=== PATIENT | female | born 2000 | race Caucasian/White ===

== ENCOUNTER 2021-08-31 22:01 | Emergency (ER) | payer OTHER ==
[~2021-08-31] VITALS: Ht 160 cm; Wt 68.0 kg
[~2021-08-31 22:01] MED LIST: CLARITIN10 MG PO; KENALOG0.1% TP
[2021-08-31 23:07] LABS: BILIRUBIN Negative (Negative); BLOOD Negative (Negative); CLARITY Cloudy (Clear); COLOR Yellow (Yellow); GLUCOSE Negative (Negative); KETONE Trace (Negative); LEUKO ESTERASE 1+ (Negative); NITRITE Negative (Negative); PH 5.5 (4.5-8.0); SPECIFIC GRAVITY >= 1.030 (1.001-1.030)
[2021-08-31 23:16] LABS: EPITHELIAL CELLS 41-50
[2021-08-31 23:17] LABS: BACTERIA 1+; CALCIUM OXALATE CRYSTALS Trace; URINE AMPHETAMINES > 1000 (1000ng/ml); URINE BARBITURATES < 200 (200ng/ml); URINE BENZODIAZEPINES < 200 (200ng/ml); URINE CANNABINOIDS (THC) > 50 (50ng/ml); URINE COCAINE < 300 (300ng/ml); URINE METHADONE < 300 (300ng/ml); URINE OPIATES < 300 (300ng/ml)
[2021-08-31 23:18] LABS: URINE PHENCYCLIDINE < 25 (25ng/ml)
== END 2021-08-31 23:05 | disposition home or self-care (01) ==
LOC: ED 22:01
PROVIDERS: Emergency Medicine
DX: O9A.211 Injury, poisoning and certain other consequences of external causes complicating pregnancy, first trimester (principal); S96.811A Strain of other specified muscles and tendons at ankle and foot level, right foot, initial encounter; O99.341 Other mental disorders complicating pregnancy, first trimester; F32.A Depression, unspecified; Z3A.01 Less than 8 weeks gestation of pregnancy

== ENCOUNTER 2021-10-18 20:02 | Emergency (ER) | payer OTHER ==
[2021-10-18] MEDS ORDERED: CEPHALEXIN500 M1 PO (20:43)
[2021-10-18] MEDS ORDERED: SEPTDS PO (20:43)
== END 2021-10-18 21:09 | disposition home or self-care (01) ==
LOC: ED 20:02
DX: S90.562A Insect bite (nonvenomous), left ankle, initial encounter (principal); S70.361A Insect bite (nonvenomous), right thigh, initial encounter; Z91.040 Latex allergy status; F17.200 Nicotine dependence, unspecified, uncomplicated; W57.XXXA Bitten or stung by nonvenomous insect and other nonvenomous arthropods, initial encounter; Y93.89 Activity, other specified; Y92.89 Other specified places as the place of occurrence of the external cause; Y99.8 Other external cause status

== ENCOUNTER 2023-02-21 18:37 | Emergency (ER) | payer OTHER ==
[~2023-02-21] VITALS: Ht 162.5 cm; Wt 77.1 kg
[~2023-02-21 18:37] MED LIST changes: +CEPHALEXIN500 M1 PO; +SEPTDS PO
[2023-02-21 19:30] LABS: BASO % 0.1 % (0.0-1.0); EOS # 0.2 10*3/uL (0.0-0.4); EOS % 1.8 % (1.0-4.0); HEMATOCRIT 37.4 % (37.0-47.0); LYMPH # 1.2 10*3/uL (1.3-4.4); LYMPH % 13.1 % (27.0-41.0); MEAN CORPUSCULAR HGB 29.4 pg (27.0-31.0); MEAN CORPUSCULAR HGB CONC 32.4 g/dl (33.0-37.0); MEAN PLATELET VOLUME 8.7 fl (9.6-12.3); MONO # 0.4 10*3/uL (0.1-1.0); MONO % 4.4 % (3.0-9.0); NEUT # 7.2 10*3/uL (2.3-7.9); NEUT % 80.3 % (47.0-73.0); PLATELET COUNT AUTOMATED 181 10*3/uL (130-400); RED BLOOD COUNT 4.11 10*6/uL (4.10-5.10); RED CELL DISTRI WIDTH 13.1 % (0-14.5); WHITE BLOOD COUNT 8.9 10*3/uL (4.8-10.8)
[2023-02-21 19:51] LABS: ALKALINE PHOSPHATASE 62 U/L (46-116); BUN 13 mg/dl (9-23); CHLORIDE 109 mmol/L (98-107); POTASSIUM 3.6 mmol/L (3.4-5.1); TOTAL PROTEIN 6.5 gm/dL (6.0-8.0)
[2023-02-21 20:00] LABS: SGPT/ALT < 7 U/L (5-49)
[2023-02-21] MEDS ORDERED: AMOXICILLIN500 M3 PO (20:57)
== END 2023-02-21 21:26 | disposition home or self-care (01) ==
LOC: ED 18:37
PROVIDERS: Nurse Practitioner Family
DX: R59.0 Localized enlarged lymph nodes (principal); H92.02 Otalgia, left ear

== ENCOUNTER 2024-09-25 13:37 | Emergency (ER) | payer OTHER ==
[~2024-09-25] VITALS: Ht 162.5 cm; Wt 74.8 kg
[~2024-09-25 13:37] MED LIST changes: +AMOXICILLIN500 M3 PO
[2024-09-25] MEDS ORDERED: IOHEXOL 300 MG/ML 100 ML VIAL IV ONE (15:05)
[2024-09-25 15:13] LABS: BASO # 0.0 10*3/uL (0.0-0.1); BASO % 0.2 % (0.0-1.0); EOS # 0.1 10*3/uL (0.0-0.4); EOS % 1.3 % (1.0-4.0); MEAN CELL VOLUME 94.9 fl (81.0-99.0); MEAN CORPUSCULAR HGB 30.8 pg (27.0-31.0); MEAN PLATELET VOLUME 8.6 fl (9.6-12.3); MONO # 0.6 10*3/uL (0.1-1.0); MONO % 7.5 % (3.0-9.0); NEUT # 5.6 10*3/uL (2.3-7.9); NEUT % 68.1 % (47.0-73.0); NUCLEATED RED BLOOD CELL 0.0 % (0.0-0.0); NUCLEATED RED BLOOD CELL 0.0 10*3/uL (0.0-0.0); PLATELET COUNT AUTOMATED 228 10*3/uL (130-400); RED CELL DISTRI WIDTH 12.5 % (0-14.5)
[2024-09-25 15:36] LABS: BUN 8 mg/dl (9-23)
[2024-09-25] MEDS ORDERED: Dexamethasone Sodium Phospha 20 MG/5 ML VIAL IV ONE (16:45)
[2024-09-25] MEDS ORDERED: NAPROSYN500 MG PO (16:48)
[2024-09-25] MEDS ORDERED: CLINDAMYCIN HC300 MG PO (16:48)
[2024-09-25] MEDS ORDERED: PREDNISONE10 MG PO (16:48)
[2024-09-25] MEDS ORDERED: PREDNISONE20 M1 PO (17:46)
== END 2024-09-25 17:06 | disposition home or self-care (01) ==
LOC: ED 13:37
PROVIDERS: Nurse Practitioner Family
DX: K04.7 Periapical abscess without sinus (principal); M27.2 Inflammatory conditions of jaws; Z79.899 Other long term (current) drug therapy